=== PATIENT | female | born 2000 ===

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

== ENCOUNTER 2019-01-25 14:12 | Observation (INO) | payer MEDICAID ==
[2019-01-25] MEDS ORDERED: PREN-153 OR (15:25)
== END 2019-01-25 15:46 | disposition home or self-care (01) | DRG 566 ==
LOC: LDRP 14:12
PROVIDERS: ADMIT Specialist; ATTEND Specialist
DX: O46.93 Antepartum hemorrhage, unspecified, third trimester (principal); Z3A.33 33 weeks gestation of pregnancy; Z87.891 Personal history of nicotine dependence
CPT/HCPCS: 59025; 81002; G0378

== ENCOUNTER 2019-02-07 13:12 | Observation (INO) | payer MEDICAID ==
[~2019-02-07] VITALS: Ht 157.5 cm; Wt 80.7 kg
[~2019-02-07 13:12] MED LIST: PREN-153 OR
[2019-02-07] MEDS ORDERED: TERBUTALINE SULFATE 1 MG/ML 1ML VIAL SC SCH (15:00)
== END 2019-02-07 16:30 | disposition home or self-care (01) | DRG 566 ==
LOC: LDRP 13:12
PROVIDERS: ADMIT Specialist; ATTEND Specialist
DX: O26.853 Spotting complicating pregnancy, third trimester (principal); Z3A.35 35 weeks gestation of pregnancy
CPT/HCPCS: 59025; 81002; 96372; G0378; J3105

== ENCOUNTER 2019-03-05 10:30 | Inpatient (IN) | payer MEDICAID | END 2019-03-06 21:15 | disposition home or self-care (01) | LOC: LDRP 10:30 | PROC: 10E0XZZ Delivery of Products of Conception, External Approach (ICD-10-PCS; principal; ~2019-03-05) | PROC: 0WQNXZZ Repair Female Perineum, External Approach (ICD-10-PCS; ~2019-03-05) | DX: O80 Encounter for full-term uncomplicated delivery (principal); Z37.0 Single live birth; Z3A.39 39 weeks gestation of pregnancy ==